=== PATIENT | male | born 1970 | race Caucasian/White ===

== ENCOUNTER → 2017-03-19 | Day surgery (SDC) | payer BC ==
[~2017-03-19] VITALS: Ht 172.7 cm; Wt 72.5 kg
[~2017-03-19] MED LIST: ACETAMINOPHEN 1000 MG/100 ML 100 ML IV ONE; ACETAMINOPHEN 325MG/HYDROcodone 7.5MG/15ML UDC ONE; AMPICILLIN/SULBAC 3 GM/NS 100 ML IV PRN; CHLORHEXIDINE GLUCONATE 2 % 1 PACK (2 CLOTHS) TOPICAL PRN; DEXAMETHASONE SOD PHOS 4 MG/ML VIAL IV ONE; FAMOTIDINE 20 MG/2 ML VIAL ONE; HYDR-3516 PO; LACTATED RINGER'S 1000 ML IV PRN; LIDOCAINE HCL 1% PF 5 ML SYRINGE OTHER ONE; METOPROLOL TARTRATE 25 MG TAB PO PRN; MICROFIBRILLAR COLLAGEN HEMOSTAT 1 GM PKT ONE; MIDAZOLAM HCL 2 MG/2 ML VIAL ONE; ONDANSETRON HCL 4 MG/2 ML VIAL IV PUSH ONE; OXYMETAZOLINE HCL 0.05% 15 ML NASAL SPRAY ONE; POVIDONE IODINE 5% (ANTISEPSIS KIT) 4 APPLICATIONS EACH NARE PRN; PROPOFOL 200 MG/20 ML AMP IV ONE; RESP: ALBUTEROL 2.5 MG/3 ML NEB (SCH) ONE; SODIUM CHLORID 0.9% 500 ML IV PRN; SUCCINYLCHOLINE CHLORIDE 100 MG/5 ML SYRINGE IV PUSH ONE
[2017-03-19 11:30] VITALS: PULSE 72
[2017-03-19 12:00] VITALS: TEMP 98.1
[2017-03-19 13:05] VITALS: BP 126/77; PULSE 62; RESP 14; O2SAT 99
--- NOTE | 2017-04-08 10:15 | MP ---
cc: RHIANNON OSEI M.D. DATE OF SURGERY 03/19/[address] Rhiannon Osei PREOPERATIVE DIAGNOSIS 1. Tonsillar hypertrophy. 2. Chronic tonsillitis. POSTOPERATIVE DIAGNOSIS 1. Tonsillar hypertrophy. 2. Chronic tonsillitis. OPERATION PERFORMED Tonsillectomy. INDICATIONS The indications are documented in the history and physical. DESCRIPTION OF OPERATION The patient was taken to OR #2 and placed in the supine position. Following induction of general anesthesia and intubation a shoulder roll, a Ajith head drape and a McIvor mouth gag were put in place. Inspection of the oropharynx revealed extreme hypertrophy of tonsils extending well into the hypopharynx. The left tonsil was removed using ArthroCare Coblator technique. There was fairly heavy bleeding on this side which was controlled by packing with tonsillar sponge packs saturated in oxymetazoline. It was also controlled by using the suction Bovie cautery and by packing with Avitene microfibrils. The right side then was addressed. This was removed using the monopolar Bovie technique. There was far less bleeding on this side but this side was also packed with sponge packs for a period of 5 minutes and then treated with the suction Bovie and Avitene microfibrils. The stomach was aspirated of a few cc's of cloudy gastric contents using a 18 Warrick sump NG tube, and the procedure was terminated. The patient was reversed from anesthesia and taken to Recovery in good condition. There were no complications. Blood loss was 200 mL. MD RANDELL Townsend/BRIANDA /7:56 AM /10:05 AM
== END | disposition home or self-care (01) ==
LOC: PHSDC 07:16
PROVIDERS: ATTEND Otolaryngology
DX: J35.01 Chronic tonsillitis (principal)
CPT/HCPCS: 00170; 42826; 88304; J0131; J0295; J0330; J1100; J2250; J2405; J3010; J7120; J7613

== ENCOUNTER 2017-06-27 20:23 | Emergency (ER) | payer BC ==
[~2017-06-27 20:23] MED LIST changes: -ACETAMINOPHEN 1000 MG/100 ML 100 ML IV ONE; -ACETAMINOPHEN 325MG/HYDROcodone 7.5MG/15ML UDC ONE; -AMPICILLIN/SULBAC 3 GM/NS 100 ML IV PRN; -CHLORHEXIDINE GLUCONATE 2 % 1 PACK (2 CLOTHS) TOPICAL PRN; -DEXAMETHASONE SOD PHOS 4 MG/ML VIAL IV ONE; -FAMOTIDINE 20 MG/2 ML VIAL ONE; -LACTATED RINGER'S 1000 ML IV PRN; -LIDOCAINE HCL 1% PF 5 ML SYRINGE OTHER ONE; -METOPROLOL TARTRATE 25 MG TAB PO PRN; -MICROFIBRILLAR COLLAGEN HEMOSTAT 1 GM PKT ONE; -MIDAZOLAM HCL 2 MG/2 ML VIAL ONE; -ONDANSETRON HCL 4 MG/2 ML VIAL IV PUSH ONE; -OXYMETAZOLINE HCL 0.05% 15 ML NASAL SPRAY ONE; -POVIDONE IODINE 5% (ANTISEPSIS KIT) 4 APPLICATIONS EACH NARE PRN; -PROPOFOL 200 MG/20 ML AMP IV ONE; -RESP: ALBUTEROL 2.5 MG/3 ML NEB (SCH) ONE; -SODIUM CHLORID 0.9% 500 ML IV PRN; -SUCCINYLCHOLINE CHLORIDE 100 MG/5 ML SYRINGE IV PUSH ONE
== END 2017-06-27 21:28 | disposition left against medical advice (07) ==
LOC: NED 20:23
DX: R51 Headache (principal); Z53.21 Procedure and treatment not carried out due to patient leaving prior to being seen by health care provider
CPT/HCPCS: 99281

== ENCOUNTER 2017-06-28 01:06 | Emergency (ER) | payer BC ==
[~2017-06-28] VITALS: Ht 182.9 cm; Wt 72.0 kg
[2017-06-28 01:19] VITALS: BP 144/67; PULSE 68; RESP 15; TEMP 98.2; O2SAT 98
== END 2017-06-28 03:05 | disposition left against medical advice (07) ==
LOC: NED 01:06
DX: R51 Headache (principal); Z53.21 Procedure and treatment not carried out due to patient leaving prior to being seen by health care provider
CPT/HCPCS: 99281